=== PATIENT | female | born 1965 | race Caucasian/White ===

== ENCOUNTER 2016-09-25 05:48 | Day surgery (SDC) | payer MEDICARE, MEDICAID ==
--- NOTE | 2016-09-24 10:43 | PCM.ANEPRE ---
Anesthesia Pre-Op Review Reason for Review: Potassium 3.0 Anesthesia Recommendations: Proceed with Procedure Additional Comments I was called by the patient's PCM, who stated that she was otherwise ready for her operation but noted that she had a potassium level of 3.0 yesterday. I told him that he could start her on oral potassium supplementation if feasible, but that we would not postpone her operation for a potassium of 3.0. Brennan Wallace MD Sep 24, 2016 10:43
[~2016-09-25] VITALS: Ht 165.1 cm; Wt 72.3 kg
[2016-09-25] MEDS: Lactated Ringer's 1,000 ML IV SCH ×2 (05:19→07:36)
[~2016-09-25 05:48] MED LIST: ACYC400T2 PO; ALBU18HF INH; ALBU8.5H2 INHALATION; AZEL137S11 NS; BUTA1CAP45 PO; CITA20TA PO; CITA20TA11 PO; CLOB15CR2 TP; FLUT12AE8 IH; HYDR-656 PO; KEN1C TP; KETO10TA PO; LISI10TA PO; LORA10CA PO; LORA1TAB PO; OMEP20TA86 PO; OXYB5TAB10 PO; OXYC1TAB24 PO; RANI150C4 PO; RES15 PO; RIZA10TA23 PO
[2016-09-25 06:10] VITALS: BP 104/68; PULSE 100; RESP 16; O2SAT 100
[2016-09-25] MEDS ORDERED: Vancomycin 1,000mg/200 mL NS IV ONE (07:48)
[2016-09-25] MEDS ORDERED: Lactated Ringer's 1,000 ML IV SCH (07:48)
[2016-09-25] MEDS ORDERED: Lactated Ringer's 500 ML IV PRN (07:48)
--- NOTE | 2016-09-25 07:48 | PCM.HPANE ---
Patient Data Date of Service: Sep 25, 2016 Surgeon Admitting Provider: Attending Provider:Doroteo Tellez DPM Primary Care Physician:Leonid Carrasco MD Other Provider:Batsheva Storm Anesthesia Reason for Visit Painful Retained Hardware Right Foot Ht/WT & BMI Height (Feet): 5 Height (Inches): 5.00 Weight (Kilograms): 72.3 Body Mass Index 26.00 Allergies Coded Allergies: Cephalosporins (Verified Allergy, Severe, CEPHALEXIN= INCR HR, N/V, RASH , 03/19/15) Penicillins (Verified Allergy, Severe, AMPICILLIN=N/V, INCR HR, RASH, 03/19) ascorbic acid (Verified Allergy, Severe, INCR HR N/V, 03/19/15) clindamycin (Verified Adverse Reaction, Severe, N&V, 03/19/15) Sulfa (Sulfonamide Antibiotics) (Verified Adverse Reaction, Unknown, N/V, INCR HR, RASH, 03/19/15) Uncoded Allergies: NUTS (Allergy, Severe, RASH & BREATHING DIFFICULTIES, (ALL NUTS EXCEPT PEANUTS), 12/05/14) Past Anesthesia History Anesthesia History: Positive for:: Difficult Intubation (pt states she has "crooked jaw" from fall), Denies:: Abnormal Airway, Anesthesia Reactions, Fam Anesthesia Reaction, Fam Malignant Hypertherm, Malignant Hyperthermia Diabetes History Hx Diabetes?: No MRSA MRSA: No Medications Hypertension Medication: Yes Home Meds Incl Beta Carol: No Reported Medications Albuterol Sulfate (Ventolin HFA Inhaler)200 Puff/18 Gm Inhaler2 Puff INH Q4 PRN For Wheezing #1 INHALER Ref 0 09/22/16 Triamcinolone Acet (Triamcinolone Acetonide Cream)1 Applic/0.25 Gm Cr1 Applic EXT BID #60 GM Ref 0 09/22/16 Temazepam 15 Mg Svurneu10-07 Mg PO HS PRN For Insomnia 30 Days Ref 0 09/22/16 Ranitidine 150 Mg Wrfyiyz372 Mg PO BID Ref 0 09/22/16 oxyCODONE-Acetaminophen 5-325 mg 1 Each Tablet1 Tab PO Q6H PRN For Pain Ref 0 09/22/16 Oxybutynin Chloride 5 Mg Tablet5 Mg PO TID Ref 0 09/22/16 Omeprazole 20 Mg Tablet.dr20 Mg PO DAILY 09/22/16 Rizatriptan ODT (Maxalt [facility] [facility] [employer])10 Mg Yyeppv85 Mg PO Q2H PRN migraines NTE 30mg/24hr 09/22/16 Lorazepam 1 Mg Tablet1 Mg PO QID PRN For Anxiety Ref 0 09/22/16 Lisinopril 10 Mg Wgxrok77 Mg PO DAILY 30 Days Ref 0 09/22/16 Ketorolac Tromethamine 10 Mg Fgaemj25 Mg PO Q6H PRN For Pain 30 Days for up to 5 days total use 09/22/16 hydrOXYzine Hcl (HydrOXYzine Hcl)25 Mg Sbtjnj48 Mg PO TID PRN For Itching Ref 0 09/22/16 Fluticasone Propionate (Flovent HFA 110 mcg)12 Gm Aer.w.adap1 Puff IH BID #12 GM Ref 0 09/22/16 Clobetasol Propionate 15 Gm Cream..g.15 Gm TP BID PRN skin irritation 09/22/16 Loratadine (Claritin)10 Mg Qgivvuj07 Mg PO DAILY Ref 0 09/22/16 Citalopram 20 Mg Pjxgre10 Mg PO DAILY Ref 0 09/22/16 Citalopram Hydrobromide (Celexa)20 Mg Lndnep55 Mg PO DAILY Ref 0 09/22/16 Butalbital/Acetamin/Caff 50-325-40 mg (Esgic 50-325-40 mg)1 Each Capsule1-2 Capsule PO Q4H PRN migraines Ref 0 not to exceed 6cap/24hrs 09/22/16 Azelastine HCl 137 Mcg/0.137 Ml Granite.kooe485 Mcg NS DAILY 09/22/16 Albuterol HFA (Proair HFA)8.5 Gm Hfa.aer.ad2 Puffs INHALATION Q4H PRN For Shortness of Breath #1 INHALER 09/22/16 Acyclovir 400 Mg Kluqhd575 Mg PO BID Ref 0 09/22/16 Discontinued Reported Medications Lisinopril 20 Mg Wdmuhh17 Mg PO DAILY 30 Days Ref 0 03/19/15 Tolterodine Tartrate ER (Detrol LA)4 Mg Cap.sr.24h4 Mg PO 12/05/14 Omeprazole 20 Mg Capsule.dr20 Mg PO DAILY 30 Days Ref 0 12/05/14 Lorazepam 1 Mg Tablet1 Mg PO QID PRN For Anxiety Ref 0 12/05/14 Azelastine HCl 137 Mcg/0.137 Ml Granite.bjyr312 Mcg NS BID 12/05/14 Acyclovir 800 Mg Irn924 Mg PO DAILY 30 Days Ref 0 12/05/14 Temazepam 15 Mg Nyguotx56-20 Mg PO HS PRN For Insomnia 30 Days Ref 0 12/05/14 Sumatriptan (Imitrex)100 Mg Bcquua989 Mg PO PRN PRN For Headache 12/05/14 Rizatriptan (Maxalt)10 Mg Njkmws49 Mg PO PRN PRN For Congestion 12/05/14 Ketorolac Tromethamine 10 Mg Txzaub68 Mg PO QID PRN PRN 30 Days 12/05/14 Fluticasone Propionate (Flovent HFA 110 mcg)12 Gm Aer.w.adap1 Puff IH BID #12 GM Ref 0 12/05/14 Loratadine (Claritin)10 Mg Easgbix22 Mg PO DAILY 30 Days Ref 0 12/05/14 Citalopram Hydrobromide (Celexa)20 Mg Yvgnnp93 Mg PO DAILY 30 Days Ref 0 12/05/14 Albuterol HFA 8.5 Gm Hfa.aer.ad1 Puff IH Q4 PRN For Shortness of Breath #1 INHALER Ref 0 12/05/14 History History of ENT Problems?: Yes HEENT History: Positive for:: Difficult Intubation (pt states she has " crooked jaw" from fall) Sinus Problem (hx nasal septoplasty) Denies:: Abnormal Airway Cataracts Dysphagia Hearing Problem Hx of Heart Problems?: Yes Cardiovascular History: Positive for:: Heart Murmur Hypertension Valvular Heart Disease (mitral valve prolapse- severe, mitral regurg last echo 11/2015) Denies:: AICD Atrial Fibrillation Chest Pain Pacemaker Hx of Respiratory Problem?: Yes Respiratory History: Positive for:: Asthma Dyspnea (KENNEY W/ WHEEZING) Use of C-PAP Machine (MARIA ANTONIA+ SLEEP STUDY 02/2014) Use of Inhalers / NEBS (uses around smoking only) Denies:: COPD Cough Hemoptysis Pneumonia Tuberculosis Hx Neurologic Problems?: Yes Neurological History: Positive for:: Dizziness (remote hx of 2007) Headaches (two to three times ) Denies:: CVA Dementia Multiple Sclerosis Parkinson's Disease Seizures Other History/Comments developmental delay/cognitive impairment Hx of GI Problems?: Yes Gastrointestinal History: Positive for:: Gastroesphageal Reflux Heartburn Rectal Bleeding (hemorrhoids, and constipation) Denies:: Cirrhosis Diverticulitis Gall Bladder Disease Gastrointestinal Bleeding Hiatal Hernia Liver Disease Hx of Problems?: Yes Genitourinary History: Denies:: Kidney Stones Urinary Tract Infection (past hx ) Female Hx: Denies:: Currently Pelvic Inflammatory Problems with Breasts? Skin History: Denies:: History Skin Disorders? Pressure Ulcers Hx Musculoskeletal Problems?: Yes Musculoskeletal History: Positive for:: Degenerative Joint Musculoskeletal Trauma (right foot current admission problem) Osteoarthritis (left leg) Denies:: Fibromyalgia Joint Replacement Hx of Psycho/Social Problems?: Yes Psycho Social History: Positive for:: Anxiety Hx Depression Hx Surgeries?: Yes (BTL,SINUSOTOMIES,NASAL SEPTOPLASTY,ORAL EXTRACTIONS,TONSILS ) Hx Any Other Health Problems?: Yes Other History: Positive for:: Hospitalization Denies:: Cancer Endocrine Disease (HX PITUITARY ADENOMA) Thyroid Disease History Blood Transfusions: Positive for:: Blood Transfusions (JEHOVAH WITNESS (WAS GIVEN BLOOD BEFORE-CONSENT BY ;NOT PT)) Denies:: Accept Blood Products? Blood Transfuse Reaction (pt will accept expanders and normal saline ) Hx Diabetes: No Hx Alcohol Use: NoHx Substance Use: No Smoking Status: Former Smoker Have You Smoked inLast 12 mo: No Stop/Bang Treated for Sleep Apnea?: Yes S-Snoring: Do You Snore Loudly: Yes T-Tired: feel tired, fatigued: Yes O-Obsered: Observed not breath: Yes P-Blood Pressure: treated: Yes B- Body Mass Index > 35 kg/m2: No A- Age over 50: Yes N- Neck Large Circumference: No G- Gender Male: No MARIA ANTONIA Total Score: 5 MARIA ANTONIA Risk Assessment: High Risk, =/>3 Yes Risk Assessment Category Category 1A: Patient has history of documented sleep apnea, and HAS NOT received any narcotic, sedative or anesthesia administration during this stay. Category 1B: Patient has history of documented sleep apnea, and HAS received any narcotic , sedative or anesthesia administration during this stay Category 2: Patient has SUSPECTED Obstructive Sleep Apnea, and HAS received any narcotic , sedative or anesthesia administration during this stay. Category 3: Patient has SUSPECTED Obstructive Sleep Apnea and HAS NOT received narcotic, sedative or anesthesia administration during this stay. Category 4: Outpatient in Procedural Areas with known sleep apnea or who screen positive for High Risk via the STOP/BANG questionnaire. Exam Exam Vital Signs Vital Signs Date Time Temp Pulse Resp B/P Pulse Ox O2 Delivery O2 Flow Rate FiO2 09/25/16 06:10 36.4 100 16 104/68 100 Room Air General Appearance: Alert, Oriented X3, Cooperative, No Acute Distress HEENT/AIRWAY: MP 3 (narrow interincisor gap/TMJ Reduced ROM) Lungs: Clear to Auscultation, Normal Air Movement Heart: Normal S1, Normal S2, Murmur Meds/Labs/Diagnostics Admission Meds Current Medications Lactated Ringer's (Lr) 1,000 ml @ 120 mls/hr Q8H20M IV Last administered on t 05:19; Start 09/25/16 at 05:00; Stop 09/25/16 at 13:19 Plan Impression Patient chart reviewed, patient interviewed and anesthestic plan with risks, benefits, and alternatives discussed, and informed consent obtained. NPO Status: 10/04 AT 1999 ASA Physical Status: ASA2 Mod Systemic Disease (sever MR without functional decline. Low risk procedure, intermediate risk patient) Anesthetic Plan: MAC Bene/Risks/Altern/Consents: Yes HP Complete Prior to Induction: Yes Jamil Samuel DO Sep 25, 2016 07:48
[2016-09-25] MEDS ORDERED: Labetalol 5 mg/mL 4 mL Inj IV PRN (07:50)
[2016-09-25] MEDS ORDERED: Phenylephrine 10,000 mCg/mL Inj IVPUSH PRN (07:50)
[2016-09-25] MEDS ORDERED: HYDROmorphone 1 mg/mL Inj IVPUSH PRN (07:50)
[2016-09-25] MEDS ORDERED: EPHEDrine Sulfate 50 mg/mL Inj IVPUSH PRN (07:50)
[2016-09-25] MEDS ORDERED: Dexamethasone 4 mg/mL Inj IVPUSH PRN (07:50)
[2016-09-25] MEDS ORDERED: Ondansetron 2 mg/mL 2 mL Inj IVPUSH PRN (07:50)
[2016-09-25] MEDS ORDERED: MetoCLOpramide 5 mg/mL 2 mL Inj IVPUSH PRN (07:50)
[2016-09-25] MEDS ORDERED: Atropine 0.4 mg/mL Inj IVPUSH PRN (07:50)
[2016-09-25] MEDS ORDERED: fentaNYL-PF 50 mCg/mL 2 mL Inj IVPUSH PRN (07:50)
[2016-09-25] MEDS ORDERED: Vancomycin 1,000 mg/250 mL NS IV ONE ×2 (08:15)
[2016-09-25] MEDS ORDERED: Bupivacaine 0.5%/EPI 50 mL Inj NERVEBLOCK ONE (08:15)
[2016-09-25] MEDS ORDERED: Lidocaine 2%-Epi 1:100,000 20 mL Inj NERVEBLOCK ONE (08:15)
[2016-09-25] MEDS ORDERED: Dexamethasone 4 mg/mL Inj INTRARTICU ONE (08:45)
[2016-09-25 09:59] VITALS: BP 103/61; PULSE 102; RESP 16; O2SAT 95
[2016-09-25] MEDS ORDERED: hydrOXYzine Pamoate 25 mg Capsule ONE (10:27)
[2016-09-25] MEDS ORDERED: oxyCODONE-Acetamin 10-325 mg Tablet PO ONE (10:27)
[2016-09-25] MEDS ORDERED: hydrOXYzine Pamoate 25 mg Capsule PO ONE (10:45)
[2016-09-25] MEDS ORDERED: oxyCODONE-Acetamin 10-325 mg Tablet PO PRN (10:45)
--- NOTE | 2016-09-25 10:45 | PCM.ANEP1 ---
Post Anesthesia Phase 1 PACU Phase 1 Assessment Date of Service: Sep 25, 2016 Vital Signs Vital Signs Date Time Temp Pulse Resp B/P Pulse Ox O2 Delivery O2 Flow Rate FiO2 09/25/16 09:59 36.6 102 16 103/61 95 Room Air 09/25/16 06:10 36.4 100 16 104/68 100 Room Air Anesthetic Administered: MAC Level of Alertness: Awake, talking TAMAYO's with Equal Strength: Yes Pain: No Nausea or Vomiting: No Oxygen Delivery: Room Air Lungs: Clear to Auscultation, Normal Air Movement Dermatome Level: Full Sensation Summary Pt emotional, weeping, moderate distress with unintelligable description of source of distress. Discussed with surgeon who has historic familiarity with her emergence and describes this affect as a baseline presentation for her state of sedation. Jamil Samuel DO Sep 25, 2016 10:45
[2016-09-25 11:37] VITALS: BP 95/61; PULSE 87; RESP 16; O2SAT 97
--- NOTE | 2016-09-25 12:11 | PCM.ANEP2 ---
Post Anesthesia Evaluation ASA/CMS Post Anesthesia Date of Service: Sep 25, 2016 VS in Patient's Normal Range?: Yes Resp Stable; Airway Patent?: Yes CV Function & Hydration Stable: Yes Mental Status Recovered?: Yes Pain control Satisfactory?: Yes N/V Control Satisfactory?: Yes Jamil Samuel DO Sep 25, 2016 12:11
--- NOTE | 2016-09-29 04:23 | OP ---
[address] [address] OPERATIVE REPORT PATIENT: EMMIE MARAVILLA : 1965 MR#: [id number] ADMIT: 09/25/2016 JOB ID: [id number] DATE OF SURGERY: 09/25/2016 SURGEON: Doroteo Tellez DPM PREOPERATIVE DIAGNOSIS(ES): Painful retained hardware of the right foot. POSTOPERATIVE DIAGNOSIS(ES): Painful hardware of the right foot. PLANNED PROCEDURE: 1. Removal of orthopedic hardware from the right foot. 2. Intra-articular steroid injection of the calcaneocuboid joint and sinus tarsi. ANESTHESIA: Local with IV sedation. HEMOSTASIS: None. ESTIMATED BLOOD LOSS: Less than 5 cc. COMPLICATIONS: None. PROCEDURE AND FINDINGS: The patient was brought to the operating room and placed on the table in supine position. She was placed under IV sedation. Afterwards, I performed a right ankle blockade using 2% lidocaine with epinephrine. The right lower extremity was prepped and draped in normal sterile surgical manner. Attention was directed to the lateral aspect of the ankle where live fluoroscopy was utilized to direct access to the lateral plate and the underlying screws. Live fluoroscopy did confirm that the screws were quite long, penetrating into the tibial nerve space on the medial side. The incision was placed within skin lines and the hypertrophic incision was excised in toto. Incision was taken down to the plate using sharp and blunt dissection, carefully cauterizing and/or ligating any bleeders that were encountered. I then secured and removed all four screws, found them to be intact without damage. The plate was also removed. Underlying bone was of good durometer including area previously grafted. The wound was flushed with normal saline. Afterwards, I closed the deep tissue plane with 3-0 Vicryl, followed by subcu closure of 4-0 Vicryl with buried knots. Attention was then directed to the dorsal aspect of the foot where incision was placed under live fluoroscopy guidance to access screws of the first metatarsal and 2nd. Incision was taken down to the hardware using sharp and blunt dissection, carefully cauterizing and ligating any bleeders that were encountered. Then, I cleared each of these screws from soft tissue and removed each, finding them to be intact, stable and without sign of corrosive change. I also performed a small incision over readily palpable and prominent head of the screw in the 5th metatarsal. Incision was taken down to the hardware which was then removed and found to be unremarkable. Likewise, I was able to palpate and incise down to the screw within the 4th metatarsal which was removed, and the final screw from the 3rd metatarsal. All screws were found to be intact, stable, and without signs of corrosive changes. Many of them were, however, very loose, spun free and were somewhat difficult to extract. All incisions were closed with deep retention of 3-0 Vicryl, followed by Steri-Strips over tincture of benzoin. Lateral incision was also treated with Steri-Strips over tincture of benzoin. I performed a durable posterior block using 0.5% bupivacaine with epinephrine. I then used 1 cc of dexamethasone sodium phosphate into the calcaneocuboid joint with the 2nd being introduced into the sinus tarsi. The patient had immediate CFT throughout the procedure as no tourniquet was applied. She was transferred from the operating room in stable condition, having tolerated the procedure and anesthetic well. Complete anesthetic block was confirmed once the patient was able to communicate with us. POSTOPERATIVE PLAN: The patient may bear weight upon the limb in her tall orthopedic boot. She is encouraged to ambulate only as necessary. She is provided with analgesic opiate prescription as well as Vistaril and azithromycin as prophylactic antibiotic. She will take that for a total of five days. I will follow her in my regular office in six days. The patient is given after hours numbers and we will call her over the weekend for update.
== END 2016-09-25 23:59 | disposition home or self-care (01) ==
LOC: SAS 05:48
PROVIDERS: ATTEND Podiatrist
DX: T84.84XA Pain due to internal orthopedic prosthetic devices, implants and grafts, initial encounter (principal); G47.30 Sleep apnea, unspecified; I34.0 Nonrheumatic mitral (valve) insufficiency; G25.81 Restless legs syndrome; I34.1 Nonrheumatic mitral (valve) prolapse
CPT/HCPCS: 20680; 76000; J1100; J2250; J3370; J7050; J7120; Q0177

== ENCOUNTER 2016-12-17 17:36 | Inpatient (IN) | payer MEDICAID, MEDICARE ==
[~2016-12-17] VITALS: Ht 165.1 cm; Wt 66.5 kg
[2016-12-17] VITALS (9 sets, daily range): BP systolic 108–136; BP diastolic 66–92; PULSE 104–112; RESP 20–28; O2SAT 96–100
--- NOTE | 2016-12-17 17:41 | ED.REPORT ---
HPI-Stroke / CVA December 17, 2016 ED Provider: Leonid Hammonds MD 51 year old female with a history of Developmental delay who presents to the ER via EMS due to slurred speech, R sided gaze, L sided paralysis and incontinence. It is unclear when these symptoms started after speaking with the family who are somewhat difficult to obtain a history from. She was last seen normal this morning at 0500. Just prior to arrival the pt's family was trying to carry the patient to the bathroom when she fell to the ground and was unable to pick her up. At baseline the patient can walk independently. Family states that the patient's paralysis is new today. Pt not anticoagulated. Nursing Notes Stated Complaint: POSSIBLE STROKE Nursing Notes Reviewed: Yes Allergies: Coded Allergies: Cephalosporins (Verified Allergy, Severe, CEPHALEXIN= INCR HR, N/V, RASH , 03/19/15) Penicillins (Verified Allergy, Severe, AMPICILLIN=N/V, INCR HR, RASH, 03/19) ascorbic acid (Verified Allergy, Severe, INCR HR N/V, 03/19/15) clindamycin (Verified Adverse Reaction, Severe, N&V, 03/19/15) Sulfa (Sulfonamide Antibiotics) (Verified Adverse Reaction, Unknown, N/V, INCR HR, RASH, 03/19/15) Uncoded Allergies: NUTS (Allergy, Severe, RASH & BREATHING DIFFICULTIES, (ALL NUTS EXCEPT PEANUTS), 12/05/14) Scheduled Citalopram Hydrobromide (Celexa) 20 Mg Tablet 20 MG PO QAM (Reported) Cyclosporine (Restasis) 1 Each Droperette 1 EACH BOTH_EYES BID (Reported) Loratadine (Claritin) 10 Mg Capsule 10 MG PO QAM (Reported) Losartan Potassium (Losartan Potassium) 25 Mg Tablet 25 MG PO QAM (Reported) Pantoprazole DR (Pantoprazole DR) 40 Mg Tablet.dr 40 MG PO QAM (Reported) Prednisone (PredniSONE) 20 Mg Tablet 20 MG PO DIRECTED (Reported) 60 MG DAILY X 3 DAYS, 40 MG DAILY X 5 DAYS, 20 MG DAILY X 5 DAYS Tolterodine Tartrate ER (Tolterodine Tartrate ER) 4 Mg Capsule 4 MG PO QAM ( Reported) Scheduled PRN Acyclovir (Acyclovir) 400 Mg Tablet 800 MG PO BID PRN PRN HERPES BREAKOUT X 5DAYS (Reported) Albuterol HFA (Proair HFA) 8.5 Gm Hfa.aer.ad 2 PUFFS INHALATION Q4H PRN PRN For Shortness of Breath (Reported) Butalbital/Acetamin/Caff 50-325-40 mg (Esgic 50-325-40 mg) 1 Each Capsule 1-2 CAPSULE PO Q4H PRN PRN migraines (Reported) not to exceed 6cap/24hrs Clobetasol Propionate (Clobetasol Propionate) 15 Gm Cream..g. 1 APPLIC TP BID PRN PRN skin irritation (Reported) Clonazepam (Clonazepam) 0.5 Mg Tablet 0.5 MG PO DAILY PRN PRN For Anxiety ( Reported) Hydrocodone-Acetaminophen 10-325 mg (Hydrocodone-Acetaminophen 10-325 mg) 1 Each Tablet 1-2 TABLET PO Q4H PRN PRN For Pain (Reported) Ibuprofen (Ibuprofen) 600 Mg Tablet 600 MG PO QID PRN PRN For Pain (Reported) Polyethylene Glycol 3350 (Polyethylene Glycol 3350) 17 Gm Powd.pack 17 GM PO DAILY PRN PRN For Constipation (Reported) Rizatriptan ODT (Maxalt PLUMBING ASSEMBLER INSTALLER) 10 Mg Tablet 10 MG PO Q2H PRN PRN migraines ( Reported) TAKE 10 MG AT ONSET OF MIGRAINE, MAY REPEAT IN 2 HRS IF NEEDED. NTE 2 DOSES/ 24 HRS. Temazepam (Temazepam) 15 Mg Capsule 15-30 MG PO HS PRN PRN For Insomnia ( Reported) Triamcinolone Acet (Triamcinolone Acetonide Cream) 1 Applic/0.25 Gm Cr 1 TP BID PRN PRN RASH (Reported) hydrOXYzine Hcl (HydrOXYzine Hcl) 25 Mg Tablet 25 MG PO TID PRN PRN For Itching (Reported) General Time Seen by Provider: 17:35 Chief Complaint Weakness, Slurred speech Left-sided Hx Obtained From: Patient, Other family..., EMS Arrived By: Ambulance Time last known well 0500 this AM Sudden in Onset?: Yes Symptom Duration: Since onset Progression Since Onset: Constant Severity: Current: No pain currently Associated with: Reports: Incontinence, Speech problem, Denies: Vomiting Pertinent Negative: Relieved by nothing Risk Factors )( TPA Administration/Criteria Stroke Thrombolytic Therapy : TPA Considered: Yes TPA Administered Intravenously: No, exclusion criteria (Unknown time of onset) NIH Stroke Scale Level of Consciousness: Alert and responsive (0) Ask Month & Age: 1 question right (1) Open/Close Eyes/Hand Mobile Designer: Performs both tasks (0) Horizontal EO Movements: None (0) Visual Perez: No visual loss (0) Facial Palsy: Minor paralysis (1) (L sided) Right Arm Motor Drift (10s): No drift 10 sec (0) Left Arm Motor Drift (10s): No effort, limb fails (3) Right Leg Motor Drift (5s): Drift, hits bed (2) Left Leg Motor Drift (5s): No effort, limb fails (3) Limb Ataxia FNF/Heel-Manuel: Untestable (0) Sensation (Arms/Legs/Face): No sensory loss (0) Language Aphasia: Loss fluency ID matls (1) Dysarthria: Slurring intelligible (1) Extinction/Inattention: No exctinct/inattent (0) NIHSS Score: 12 Time NIHSS Performed: 17:40 Date NIHSS Performed: December 17, 2016 Past Medical History Past Medical History HTN Valvular heart disease(mitral valve prolapse- severe, mitral regurg last echo 11/2015) Asthma MARIA ANTONIA on CPAP GERD Anxiety Depression HX PITUITARY ADENOMA Past Surgical History BTL,SINUSOTOMIES,NASAL SEPTOPLASTY,ORAL EXTRACTIONS,TONSILS, FOOT Smoking History Former Smoker Review of Systems Neurologic: Reports: Bladder dysfunction, Focal weakness, Problem walking, Slurred speech, Denies: Change LOC, Unable to speak, Vision change Complete sys rev & neg: except as marked. Physical Exam Initial Vital Signs Vital Signs (First) Date Time Temp Pulse Resp B/P Pulse Ox O2 Delivery O2 Flow Rate FiO2 12/17/16 17:56 104 26 128/73 100 Room Air Initial VS: Reviewed ENT: Conjunctiva normal, No scleral icterus Abdomen / GI: Soft, Non-tender Skin: Warm, Dry Psychiatric: Mood/affect normal, Normal thought content General/Constitutional: Awake, Alert Head / Eyes: Atraumatic, Normocephalic, PERRL Neck: Atraumatic, Full range of motion Respiratory / Chest: Breath sounds NL, Breath sounds = bilat, No respiratory distress, No rales, No rhonchi, No wheezing Cardiovascular: Heart rate NL Holosystolic murmur at Left Upper sternal border Neurologic: Oriented X3 See NIH scale Interpretation & Diagnostics Lab Results Interpretation Result Diagram: 12/17/16 1800 12/17/16 1800 Test 12/17/16 18:00 White Blood Count 13.6th/mm3 (3.8-10.1) Red Blood Count 4.41mil/mm3 (3.90-5.20) Hemoglobin 11.7g/dL (12.0-15.6) Hematocrit 36.2% (35.0-46.0) Mean Corpuscular Volume 82.1fL (81-100) Mean Corpuscular Hemoglobin 26.5pg (27.0-35.0) Mean Corpuscular Hemoglobin Concent 32.3% (32.0-37.0) Red Cell Distribution Width 17.7% (12.3-15.4) Platelet Count 298bil/L (150-400) Neutrophils (%) (Auto) 85.9% (40-74) Lymphocytes (%) (Auto) 7.9% (14-46) Monocytes (%) (Auto) 5.7% (4-12) Eosinophils (%) (Auto) 0% (0-5) Basophils (%) (Auto) 0.1% (0-3) Prothrombin Time 10.5sec (8.1-12.5) Prothromb Time International Ratio 0.98ratio Activated Partial Thromboplast Time 24.9sec (22.8-33.0) Sodium Level 137mEq/L (134-144) Potassium Level 3.3mEq/L (3.5-5.2) Chloride Level 94mEq/L (97-108) Carbon Dioxide Level 24mmol/L (18-29) Blood Urea Nitrogen 15mg/dL (6-24) Creatinine 0.50mg/dL (0.57-1.00) Estimat Glomerular Filtration Rate 186mL/min (>59) Glucose Level 104mg/dL (60-99) Calcium Level 9.3mg/dL (8.5-10.1) Total Bilirubin 1.6mg/dL (0.0-1.2) Aspartate Amino Transf (AST/SGOT) 21U/L (0-50) Alanine Aminotransferase (ALT/SGPT) 5U/L (0-32) Alkaline Phosphatase 119U/L (25-150) Troponin T < 0.010ug/L (0.0-0.011) Total Protein 7.5g/dL (6.4-8.4) Albumin 3.1g/dL (3.4-5.0) General Lab Results Interp 1: Labs reviewed ECG Interpretation Time: 18:25 Interpreted by: ED physician Rhythm / Conduction: Tachycardia (106) CT Head Interpretation IMPRESSION: Acute nonhemorrhagic stroke involves the right basal ganglia, with concomitant findings suspicious for proximal right middle cerebral artery thrombus. Findings discussed with Dr. Kiran Caruso on 1755 hours on December 17, 2016. This study fulfills neurological imaging criteria for inclusion or exclusion of acute stroke therapies based on available published neurological imaging guidelines. Dictated by: Stanley Dixon M.D. on 12/17/2016 at 17:50 Study: Head CT no contrast Interpretation / Wet Read by: Interpret - Radiologist Re-Eval/Medical Decision Med Decision/Clinical Course 51-year-old female with developmental delay presenting with left-sided weakness, left-sided facial droop developed today. Last known normal was greater than 8 hours prior to arrival. Code stroke called immediately. CT shows right MCA infarct with clot. Discussed with [facility] stroke neurologist who said not TPA candidate and not candidate for thrombectomy due to time. Recommended admission for stroke workup. Admitted to hospitalist. Aspirin given. Re-Evaluation/Progress : Time of Eval: 18:08 Re-Evaluation/Progress Note: Pt and family updated of + CVA and discussed plan for possible transfer to [facility] Consultation #1: Referral / Consult Name: DevincheliEmilia Roas LOPEZ Consulted With: Hospitalist Call Returned at: 19:16 Nursing Teacher: Will see patient, Agrees with eval, Agrees with plan, Accepts admit Consultation #2: Call Returned at: 17:58 Note: Informed of imaging result by radiolofist. Consultation #3: Consulted With: Neurology Call Returned at: 18:01 Note: [facility] Neurology- Dr. Mynor Matthew- Not TPA or thrombectomy candidate. Normal stroke workup. Okay to stay here and not transfer. Counseled Regarding: Diagnosis, Lab results, Need for admission Patient Discharge & Departure Impression: Primary Impression: Acute right MCA stroke Disposition: ADMITTED TO HOSPITAL Transfer Requested at: 18:11 Receiving Hospital: [facility] Neurology- Dr. Mynor Matthew Transfer Accepted: No Discharge Condition All VS Reviewed: Yes Referrals: Leonid Carrasco MD (PCP) Crit Care Except Billable Proc Time Spent: 75-104 minutes Services Performed: Patient management by me, Time spent at bedside, Reviewing test results, Reviewing imaging, Discussing patient care, Documentation in record, Time with fam/surrogate Scribe Attestation Portions of this note were transcribed by Jyothi Luna. I, (Dr. Leonid Caruso) personally performed the history, physical exam and medical decision- making; I reviewed and confirmed the accuracy of the information in the transcribed note. Signed by: Jyothi Luna. Scott, 12/17/2016, 1999 copies to: Leonid Carrasco MD, Ben M MD December 17, 2016 17:41 Jyothi Luna December 17, 2016 17:55
--- NOTE | 2016-12-17 17:57 | DRSVH ---
PROCEDURE: CT BRAIN (TPA) ([id number]) INDICATIONS: 51 year-old female with stroke symptoms. TECHNIQUE: Noncontrast 4.5 mm thick angled axial sections acquired from the foramen magnum to the vertex, with c oronal reformats. COMPARISON: None. FINDINGS: Image quality: Excellent. CSF spaces: Basal cisterns are patent. No extra-axial fluid collections. Ventricles are normal in size and shape. Brain: No midline shift. No intracranial masses or hemorrhage. An acute ischemic insult involves th e right basal ganglia, with loss of ash-white matter differentiation as well as localized mass effec t. On axial image 13, there is asymmetric hyperdensity of the proximal right middle cerebral artery. Skull and face: Calvarium and visualized facial bones are intact, without suspicious lesions. Sinuses: Visualized sinuses and mastoids are clear. IMPRESSION: Acute nonhemorrhagic stroke involves the right basal ganglia, with concomitant findings s uspicious for proximal right middle cerebral artery thrombus. Findings discussed with Dr. Kiran Caruso on 1755 hours on December 17, 2016. This study fulfills neurological imaging criteria for inclusion or exclusion of acute stroke therapie s based on available published neurological imaging guidelines. Dictated by: Stanley Dixon M.D. on 12/17/2016 at 17:50 Approved by: Stanley Dixon M.D. on 12/17/2016 at 17:55
[2016-12-17 18:18] LABS: BASOPHILS % (AUTO) 0.1 % (0-3); EOSINOPHILS % (AUTO) 0 % (0-5); MONOCYTES % (AUTO) 5.7 % (4-12); Mean Corpuscular Hemoglobin 26.5 pg (27.0-35.0); Mean Corpuscular Volume 82.1 fL (81-100); NEUTROPHILS % (AUTO) 85.9 % (40-74); Platelet Count 298 bil/L (150-400)
[2016-12-17 18:36] LABS: INR 0.98 ratio
[2016-12-17 18:42] LABS: TROPONIN T < 0.010 ug/L (0.0-0.011)
[2016-12-17] MEDS ORDERED: Ondansetron 2 mg/mL 2 mL Inj IVPUSH PRN ×2 (19:20→19:40)
[2016-12-17] MEDS ORDERED: Alum-Mag Hydrox-Simeth 30 mL Suspension PO PRN ×2 (19:20→19:40)
[2016-12-17] MEDS ORDERED: PRE20 PO (19:34)
[2016-12-17] MEDS ORDERED: CYCL1DRO BOTH_EYES (19:40)
[2016-12-17] MEDS ORDERED: LOSA25TA21 PO (19:40)
[2016-12-17] MEDS ORDERED: PANT40TA3 PO (19:40)
[2016-12-17] MEDS ORDERED: Polyethylene Glycol (PEG) 17 Gm Powder PO PRN (19:40)
[2016-12-17] MEDS ORDERED: TOLT4CAP13 PO (19:40)
[2016-12-17] MEDS ORDERED: POLY17PO2 PO (19:40)
[2016-12-17] MEDS ORDERED: IBUP-1827 PO (19:40)
[2016-12-17] MEDS ORDERED: HYDROcodone-APAP 5-325 mg Tablet PO PRN (19:40)
[2016-12-17] MEDS ORDERED: HYDR-3740 PO (19:40)
[2016-12-17] MEDS ORDERED: Labetalol 5 mg/mL 4 mL Inj IVPUSH PRN (19:40)
[2016-12-17] MEDS ORDERED: KLO5T PO (19:40)
[2016-12-17] MEDS ORDERED: hydrALAZINE 20 mg/mL Inj IVPUSH PRN (19:40)
[2016-12-17] MEDS ORDERED: 0.9% Sodium Chloride 500 ML IV ONE (19:50)
[2016-12-17 20:08] LABS: APPEARANCE,URINE CLOUDY (CLEAR,HAZY); COLOR,URINE DARK YELLOW (YELLOW); OCCULT BLOOD,URINE LARGE (NEGATIVE); UROBILINOGEN,URINE NORMAL (NORMAL)
[2016-12-17 20:09] LABS: ICTOTEST,URINE POSITIVE (Negative)
--- NOTE | 2016-12-17 20:35 | PCM.HPMED ---
Subjective Date of Service December 17, 2016 Primary Provider: Admitting Physician: Emilia Hammer DO Primary Care Physician: Leonid Carrasco MD Attending Physician: Emilia Hammer DO Admit Status: From the Emergency Department Chief Complaint: left sided weakness History of Present Illness: 51-year-old female with history of learning disability, MVR, migraines, and sleep apnea who presented to the ED for complaints of acute onset of left-sided weakness and slurred speech. Per family, patient was noted to have these symptoms around lunchtime today, although they are unsure if it was present before. They state the patient was at baseline prior to going to sleep last night. She is able to converse fluently and walk independently at baseline, but around lunchtime, they noted that she was unable to articulate her words well and had to be carried to the bathroom. She was noted to be have urinary incontinence also. Family denies any recent illnesses, fevers, cough, congestion , abd pain, n/v, diarrhea, or increased complaint of pain. Patient did have surgery in Sep on her right foot and family reports patient has been fairly immobile since. She generally lays in bed everyday except for a rare trip to [facility]. In the ED, patient was mildly tachycardic at 104, with a respiratory rate of 26 , and a blood pressure of 128/73 Her CBC remarkable for a white count of 13.6 with hemoglobin 11.7 CMP remarkable for a potassium of 3.3 and a total bilirubin of 1.6 Her NIH SS score was 12 per ED physician. Initial brain CT unremarkable for acute nonhemorrhagic stroke of the right basal ganglia with a proximal right MCA thrombus. TPA was not pushed due to uncertain timeframe. [facility] neurosurgery was consulted and recommended observation overnight with MRI in the morning and reconsultation. Reviewing patient's medications, she is currently on the prednisone taper. Further investigation by pharmacy team reports that patient was the [facility] on December 13 for left-sided temporal pain. They were suspicious of temporal arteritis and she was placed on a prednisone taper, which she is at 40 mg currently. Review of Systems: Complete review of systems negative except as stated in the history of present illness Allergies Coded Allergies: Cephalosporins (Verified Allergy, Severe, CEPHALEXIN= INCR HR, N/V, RASH , 03/19/15) Penicillins (Verified Allergy, Severe, AMPICILLIN=N/V, INCR HR, RASH, 03/19) ascorbic acid (Verified Allergy, Severe, INCR HR N/V, 03/19/15) clindamycin (Verified Adverse Reaction, Severe, N&V, 03/19/15) Sulfa (Sulfonamide Antibiotics) (Verified Adverse Reaction, Unknown, N/V, INCR HR, RASH, 03/19/15) Uncoded Allergies: NUTS (Allergy, Severe, RASH & BREATHING DIFFICULTIES, (ALL NUTS EXCEPT PEANUTS), 12/05/14) Home Medications From [facility] acyclovir 400 mg tablet take 2 tablet by oral route every day albuterol sulfate HFA 90 mcg/actuation Aerosol Inhaler inhale 2 puff by inhalation route every 4 - 6 hours as needed azelastine 137 mcg nasal spray aerosol spray 2 spray by intranasal route 2 times every day in each nostril lkvdzipkva-cipjxirgbbrst-cslgfvgb 50 mg-325 mg-40 mg capsule take 1 - 2 capsule by oral route every 4 hours as needed not to exceed 6 capsules per 24hrs Celexa take 1 tablet by oral route every day citalopram 20 mg tablet take 1 tablet by oral route every day Claritin 10 mg Tab take 1 tablet (10MG) by oral route every day clobetasol 0.05 % topical cream apply by topical route 2 times every day a thin layer to the affected area(s) Flovent HFA 110 mcg/actuation Aerosol Inhaler inhale 1 puff (110MCG) by inhalation route 2 times every day hydroxyzine HCl 25 mg tablet take 1 tablet by oral route 4 times every day ketorolac 10 mg tablet take 1 tablet by oral route every 6 hours as needed for up to 5 days total use lisinopril 10 mg tablet take 1 tablet by oral route every day lorazepam 1 mg tablet take 1 tablet by oral route 4 times every day as needed losartan 25 mg tablet take 1 tablet by oral route every day Maxalt-WHEEL ALIGNMENT TECHNICIAN 10 mg disintegrating tablet take 1 tablet by oral route and place on top of the tongue where it will dissolve, then swallow once, may repeat at 2 hour intervals; do not exceed 30 mg in 24 hours naproxen 500 mg tablet take 1 tablet by oral route every day with food omeprazole 20 mg capsule,delayed release take 1 capsule by oral route every day 30 minutes to 1 hour before a meal oxybutynin chloride 5 mg tablet take 1 tablet by oral route 3 times every day Percocet 5 mg-325 mg tablet take 1 tablet by oral route every 6 hours as needed Percocet 5 mg-325 mg tablet take 1 tablet by oral route every 6 hours as needed ranitidine 150 mg capsule take 1 capsule by oral route 2 times every day temazepam 15 mg capsule take 1 - 2 capsule by ORAL route every day at bedtime as needed triamcinolone acetonide 0.1 % topical ointment apply by topical route 2 times every day a thin layer to the affected area(s) Ventolin HFA 90 mcg/actuation aerosol inhaler inhale 2 puff by inhalation route every 4 - 6 hours as needed PMH Learning Disability Mitral Valve Regurg secondary to MVP ADD Sleep Apnea not on CPAP GERD Asthma RLS Migraines Reported history of pituitary adenoma Depression Surgical History Right foot surgery in 2014 with hardware removal 09/2016 Tonsillectomy Sinus surgery Family History Anabaptist No family history of blood disorders Social History Hx Alcohol Use: No Hx Substance Use: No Hx Tobacco Use: No Smoking Status: Former Smoker Living Arrangement: with Family Exam Vital Signs Vital Sign - Last Date Time Temp Pulse Resp B/P Pulse Ox O2 Delivery O2 Flow Rate FiO2 12/17/16 19:40 36.7 107 24 128/92 99 Room Air Exam General: Well-developed female who appears in poor hygiene, she is unable to articulate well, but does answer yes or no and is cooperative, she is alert and oriented HEENT: NC/AT, PERRLA, EOMI, sclera anicteric, oropharynx dry with crusted blood on lips, poor dentition Neck: Paraspinal muscles mildly tender to palpation, trachea midline, no bruits noted CV: Regular rate and rhythm harsh systolic murmur at left midclavicular line. Peripheral pulses intact and equal Respiratory: CTA B, no wheezing or rhonchi, normal respiratory effort Abdomen: Soft, nontender, nondistended, NABS MSK: No swollen or tender joints, no peripheral edema or calf tenderness noted Neuro: Left facial droop noted, left upper extremity and left lower extremity muscle strength is 0/5. Fairly severe dysarthria and some left gigi-neglect : No Meraz in place Skin: Warm, dry, intact Psych: Patient is alert, oriented, and is responsive to questioning. She was able to state her name and birthdate, but answered majority of questions with yes or no. Lab and Diagnostics Result Diagram: 12/17/16 1800 12/17/16 1800 X-Rays, CTs and MRIs PROCEDURE: CT BRAIN (TPA) ([id number]) IMPRESSION: Acute nonhemorrhagic stroke involves the right basal ganglia, with concomitant findings suspicious for proximal right middle cerebral artery thrombus. Findings discussed with Dr. Kiran Caruso on 1755 hours on December 17, 2016. This study fulfills neurological imaging criteria for inclusion or exclusion of acute stroke therapies based on available published neurological imaging guidelines. 12-lead ECG Sinus tachycardia with heart rate of 106, multiple PVCs, unspecific IVCD Assessment & Plan 51-year-old female with history of learning disability, MVR, migraines, and sleep apnea who presented to the ED for complaints of acute onset of left-sided weakness and slurred speech. Right basal ganglia nonhemorrhagic stroke with right MCA thrombus, POA -Suspect that this is possibly due to patient's immobile state after a right ankle surgery, but hypercoagulable disorder vs cardiac source is also possible in this patient. -[facility] neurology has been consulted, and recommends MRI in the a.m., and then contacting them again in the AM -Frequent neuro checks -Allow for permissive hypertension. IV labetalol and IV hydralazine prn BP >220 /110 -Placed on telemetry for CV monitoring -Complete echocardiogram in the a.m. with bubble study -MRI stroke protocol in the a.m. -Swallow evaluation pending -PT/OT eval requested -hgbA1c pending, lipid panel pending -start statin when taking PO Mitral valve regurgitation, POA -Last Echo in 2014 showed mitral valve prolapse with severe mitral regurg. LVEF of 55% -Currently on Losartan for it. Will hold Losartan for 24 hours due to permissive htn. History of migraines, POA -Patient was recently [place] [facility] [place] pain and was placed on a Steroid Taper on 12/13 per pharmacy. -Currently taking Prednisone 40mg PO x 5days. -Will plan to hold prednisone while we request records from [facility] to see if officially diagnosed with temporal arteritis. Leukocytosis, POA -Mild Leukocytosis on admission -Likely due to stress reaction, but will continue to monitor for s/s infection Elevated Glucose, POA -Glucose 104 on admit. -Will check A1c and Lipid Panel in AM. History of learning disability, POA -Pt conversive and independent at baseline GERD, POA -IV Pantoprazole daily while NPO Depression, POA -Resume home ssri when appropriate History of Asthma, POA -Stable without exacerbation. -Continue patient's home inhalers Tylenol when necessary for fever/pain Zofran when necessary for nausea CODE STATUS full resuscitation Disposition: Patient is admitted under Inpatient status, expected LOS >2 midnights, due to risk of adverse events, medical complexity, and decompensation Pain Evaluation: Adequate Pain Control VTE Prophylaxis: Sub-Q Heparin (Unfractionated), SCDs Resuscitation Status: CPR: Attempt Resuscitation Attending Statement The patient was seen and examined together with house staff on 12/17/2016 and I agree with the history, exam and plan as outlined in the note above. Freddie Trejo DO December 17, 2016 20:35 Emilia Hammer DO December 18, 2016 02:36
[2016-12-17] MEDS ORDERED: hydrOXYzine Pamoate 25 mg Capsule PO PRN (20:40)
[2016-12-18] VITALS (8 sets, daily range): BP systolic 90–113; BP diastolic 59–72; PULSE 71–107; RESP 18–24; O2SAT 91–99
[2016-12-18] MEDS: 0.9% Sodium Chloride 1,000 ML IV SCH ×2 (00:15→12:45)
[2016-12-18] MEDS ORDERED: Heparin 5,000 Unit/mL Inj SUBQ SCH ×2 (00:30→08:30)
[2016-12-18 03:19] LABS: BASOPHILS % (AUTO) 0.1 % (0-3); EOSINOPHILS % (AUTO) 0.2 % (0-5); MONOCYTES % (AUTO) 7.7 % (4-12); Mean Corpuscular Hemoglobin 26.2 pg (27.0-35.0); Mean Corpuscular Volume 84.4 fL (81-100); NEUTROPHILS % (AUTO) 83.4 % (40-74); Platelet Count 260 bil/L (150-400)
[2016-12-18] MEDS ORDERED: Potassium Chloride Inj 20 MEQ in Dextrose 5% 250 ML IV ONE (04:30)
[2016-12-18] MEDS ORDERED: Pantoprazole 40 mg ER24 Tablet PO SCH (06:30)
[2016-12-18] MEDS ORDERED: Albuterol 2.5 mg/3 mL Inhalation Solution NEB PRN (07:00)
[2016-12-18] MEDS ORDERED: Pantoprazole 4 mg/mL 10 mL Inj IVPUSH SCH (07:30)
--- NOTE | 2016-12-18 08:27 | DRSVH ---
PROCEDURE: MRI STROKE PROTOCOL ([id number]) Pre- and post-contrast brain MRI, non-contrast brain MR angiogram, pre- and postcontrast neck MR sunny ogram INDICATIONS: Left sided weakness TECHNIQUE: Brain: Noncontrast axial T1 spin echo, axial T2 fast spin echo, sagittal and axial FLAIR, coronal T2 fast spin echo, axial gradient echo, axial diffusion and ADC through the brain. After the administr ation of contrast, axial 3D VIBE of the cranial vasculature and brain. Brain MRA: Non-contrast 3-D time of flight MR angiogram, with multiple fdnvncp-hcjurrung-chwpixvbcm (MIP) reformats performed. Neck MRA: Axial and sagittal TruFISP through the neck. Coronal dynamic MR angiogram during administ ration of contrast in the arterial and venous phases, with 3-dimenstional ehrkiog-hgdzyssij-rfmpnejra n (MIP) reformats constructed from subtraction images. COMPARISON: None. FINDINGS: Image quality: Excellent. BRAIN: CSF spaces: Ventricles are normal in size and shape. Basal cisterns are patent. No extra-axial flu id collections. Brain: Restricted diffusion in the right basal ganglia and surrounding deep white matter consistent w ith acute/subacute infarction. No increased T1 signal to suggest hemorrhagic transformation. There is associated increased T2 signal and mild edema. Findings efface the right lateral ventricle. No midli ne shift. Further acute infarction in the posterior left para midline frontal lobe amounts ( se 2 im 70). Possible punctate acute infarction in the left caudate head. Skull and face: Calvarial marrow signal is normal. Orbits appear normal. Sinuses: Sinuses and mastoids are clear. BRAIN MR ANGIOGRAM: Anterior circulation: Intracranial internal carotid arteries are normal in size and enhancement. Th e flow within the paired anterior cerebral arteries is normal and symmetric. There is loss of flow in the right middle cerebral artery at the M1 level.. The left middle cerebral artery is patent. The a nterior communicating artery is seen. No stenoses, occlusions, or aneurysms. Posterior circulation: The visualized portions of the vertebral arteries demonstrate normal caliber, and join to form a normal appearing basilar artery. The flow within the posterior cerebral arteries is normal and symmetric. No stenoses, occlusions, or aneurysms. A right-sided posterior communicat ing artery is identified. No left-sided posterior indicating artery is identified. NECK MR ANGIOGRAM: Carotids: Great vessels demonstrate a conventional anatomy as they arise from the aortic arch. The origins of the common carotid arteries appear patent. The calibers and courses of both common caroti d arteries are normal. The bifurcation regions appear normal bilaterally. The internal carotid francesca flaco demonstrate normal course and caliber. Posterior circulation: The origins of the vertebral arteries appear patent. More superior portions of both vertebral arteries demonstrate normal course and caliber, and join to form a normal appearing basilar artery. Miscellaneous: Subclavian arteries appear patent. Pre-contrast images through the neck show no soft tissue abnormalities. IMPRESSION: BRAIN MRI: Acute/subacute infarction involving the right basal ganglia and surrounding deep white mat ter with no hemorrhagic transformation or midline shift. Edema effaces the right lateral ventricle. F indings are caused by acute occlusion of the M1 segment of the right middle cerebral artery. Small area of acute infarction in the posterior left paracentral frontal lobe. Possible punctate acut e infarction in the left caudate head. BRAIN MR ANGIOGRAM: Acute occlusion of the right middle cerebral artery at the M1 level. NECK MR ANGIOGRAM: Normal. There are no discrepancies with the pulmonary report. The estimate of stenosis included in the report of the imaging study was calculated using the NASCET method Dictated by: Paul Wise M.D. on 12/18/2016 at 8:10 Approved by: Paul Wise M.D. on 12/18/2016 at 8:26
[2016-12-18] MEDS ORDERED: Tolterodine ER 4 mg ER24 Capsule PO SCH (08:30)
--- NOTE | 2016-12-18 11:23 | DRSVH ---
[facility] [address] [place] [address] Echocardiogram Report Name: EMMIE MARAVILLA KStudy Date: 12/18/2016 Height: 65 in Hospital Exam Location: [facility] Weight: 147 lb Gender: Female BSA: 1.7 m2 : 1965 Age: 51 yrs BP: 109/66 mmHg Reason For Study: CVA History: Mitral valve prolapse Ordering Physician: Performed By: Janet Cintron Interpretation Summary The patient is on [facility] Care Team. Left ventricular wall thickness is mildly increased. The ejection fraction is estimated to be 55-60%. The left atrium is severely dilated. Injection of contrast documented no interatrial shunt. Mobile mass consistent with a torn or redundant chordae vs vegetation noted on the posterior mitral valve leaflet. This is a new finding. Consider HILARY. The mitral regurgitant jet is eccentrically directed. There is moderate mitral regurgitation. Color doppler may be underestimating the severity of MR. Flow reversal noted in pulmonary veins consistent with significant mitral regurgitation. Procedure: A two-dimensional transthoracic echocardiogram with color flow and Doppler was performed. Comparison is made with the echocardiogram of 09/27/2014. The study quality was technically good. The patient was in normal sinus rhythm during the exam. The patient had occasional PVCs during the exam. Left Ventricle: Left ventricular wall thickness is mildly increased. The left ventricle is normal in size. The ejection fraction is estimated to be 55 -60%. There are no focal wall motion abnormalities. Spectral Doppler of the mitral valve shows a normal E/A wave ratio. Right Ventricle: The right ventricle is normal in size and function. Atria: The left atrium is severely dilated. The left atrial volume has not changed since prior echo. Right atrial size is normal. Injection of contrast documented no interatrial shunt. Leftward interatrial septal shift was not achieved due to patient not being able to Valsalva. Mitral Valve: The mitral valve leaflets appear mildly thickened, but open well. The mitral valve leaflets are slightly calcified. There is prolapse of the posterior mitral valve leaflet(s). Mobile mass consistent with a torn or redundant chordae vs vegetation noted on the posterior mitral valve leaflet. This is a new finding. Consider HILARY. Flow reversal noted in pulmonary veins consistent with significant mitral regurgitation. The mitral regurgitant jet is eccentrically directed. There is moderate mitral regurgitation. Aortic Valve: The aortic valve is normal in structure and function. No aortic regurgitation is present. Tricuspid Valve: The tricuspid valve is normal in structure and function. There is a trace or physiologic amount of tricuspid regurgitation. Right ventricular systolic pressure is estimated to be least 25 mmHg plus the clinically estimated CVP which cannot be estimated on this exam. Pulmonic Valve: The pulmonic valve is not well seen, but is grossly normal. There is no pulmonic valvular regurgitation. Great Vessels: The aortic root is normal size. The ascending aorta is mildly enlarged. The aortic arch is normal in size. The IVC is normal in size. The patient could not perform an adequate sniff to assess venous pressure. Pericardium/ Pleura There is a small pericardial effusion noted. There are no echocardiographic or Doppler indications for cardiac tamponade. There is no pleural effusion. MMode/2D Measurements & Calculations LVIDd: 4.9 cm RA long axis LVOT diam: 2.4 cm LVIDs: 3.5 cm LA A2 area: 29.5 cm AoV Opening FS: 28.8 % LA A4 area: 23.2 cm RA area EPSS: 0.43 cm LA length (vol) Ao root diam IVSd: 1.3 cm : 9.4 cm LVPWd: 1.2 cm LA vol: 116.9 ml RA vol Aortic Jxn: 2.9 cm LA vol index : 18.9 ml asc Aorta Diam RA : 10.9 mm2 Ao Arch Diam (Prox IVC diam: 0.79 cm Trans): 3.0 cm LV gallo. diameter/BSA LV sys. diameter/BSA RVD2 (mid) TAPSE: 2.6 cm (cm/m^2): 2.8 (cm/m^2): 2.0 : 4.0 cm Doppler Measurements & Calculations Ao V2 max MV E max jordan MV E/A: 1.1 TR max jordan : 128.1 cm/sec : 101.9 cm/sec Med Peak E' Jordan : 249.1 cm/sec Ao max PG MV A max jordan TR max PG : 6.6 mmHg : 96.3 cm/sec E/E' med: 12.6 : 24.8 mmHg Ao mean PG MV P1/2t: 61.8 msec Lat Peak E' Jordan PA V2 max : 77.5 cm/sec LVOT Max Jordan E/E' lat: 9.1 PA mean PG : 76.5 cm/sec E/e' average PA Accel Time MANI(I,D): 2.9 cm : 0.14 sec sev ratio MV dec time MV P1/2t max jordan Ao V2 mean LV V1 max PG : 0.21 sec : 91.3 cm/sec MVA(P1/2t): 3.6 cm2 Ao V2 VTI: 23.1 cm LV V1 VTI MANI(V,D): 2.6 cm2 : 15.6 cm PA V2 mean MANI indexed to BSA : 46.2 cm/sec (cm^2/m^2): 1.7 Electronically signed by: Dwight Ortiz on Reading Physician:12/18/2016 11:23 AM
[2016-12-18] MEDS ORDERED: LORA1TAB PO (11:35)
[2016-12-18] MEDS ORDERED: ALBU18HF INH (13:10)
[2016-12-18] MEDS ORDERED: AZEL137S11 NS (13:10)
[2016-12-18] MEDS ORDERED: FLUT12AE8 IH (13:10)
--- NOTE | 2016-12-18 14:47 | PCM.PNMED ---
Subjective Date of Service December 18, 2016 Subjective Sarah Lozada is a 51-year-old female with history of learning disability, MVR, migraines, and sleep apnea who presented to the ED for complaints of acute onset of left-sided weakness and slurred speech. Now under treatment for right basal ganglia stroke. Hospital day #2. Overnight: No acute events reported. Today: The is somnolent and not responsive to voice. The patient's daughter and sister were present and noted that the patient was making more sense this morning. This afternoon she is much more awake and alert and responsive but was able to stand with physical therapy. She had ongoing left sided neglect. Review of systems could not be performed. Exam Vital Signs Vital Sign - Last Date Time Temp Pulse Resp B/P Pulse Ox O2 Delivery O2 Flow Rate FiO2 12/18/16 11:59 36.6 85 18 97/63 97 Nasal Cannula 1.50 Intake and Output 12/17/16 12/17/16 12/18/16 Cumulative From/Thru 14:59 22:59 06:59 12/17/16 17:56 - 12/18/16 06:54 Intake Total 0 ml 0 ml Output Total 800 ml 800 ml Balance -800 ml -800 ml Intake Oral 0 ml 0 ml Output Urine Total 800 ml 800 ml Exam General: Well-developed female, in no acute distress. Somnolent. Not responding to verbal stimulus. HEENT: NC/AT. Eyes closed. Neck: trachea midline CV: Regular rate and rhythm 3/6 diastolic murmur at left midclavicular line. Peripheral pulses intact and equal Respiratory: CTA B, no wheezing or rhonchi, normal respiratory effort Abdomen: Soft, nontender, nondistended, NABS MSK: No swollen or tender joints, no peripheral edema or calf tenderness noted Neuro: Left facial droop noted. Patient not very cooperative with a neurological exam. Left-sided weakness is evident in the left lower extremities and left upper extremity. : No Meraz in place Skin: Warm, dry, intact Psych: Somnolent. IVs and Medications Medications Reviewed: Medications were reviewed in detail Lab and Diagnostics Result Diagram: 12/18/1624412/18/16244 X-Rays, CTs and MRIs CT BRAIN (TPA) IMPRESSION: Acute nonhemorrhagic stroke involves the right basal ganglia, with concomitant findings suspicious for proximal right middle cerebral artery thrombus. Findings discussed with Dr. Kiran Caruso on 1755 hours on December 17, 2016. This study fulfills neurological imaging criteria for inclusion or exclusion of acute stroke therapies based on available published neurological imaging guidelines. Dictated by: Stanley Dixon M.D. on 12/17/2016 at 17:50 MRI STROKE PROTOCOL Pre- and post-contrast brain MRI, non-contrast brain MR angiogram, pre- and postcontrast neck MR angiogram IMPRESSION: BRAIN MRI: Acute/subacute infarction involving the right basal ganglia and surrounding deep white matter with no hemorrhagic transformation or midline shift. Edema effaces the right lateral ventricle. Findings are caused by acute occlusion of the M1 segment of the right middle cerebral artery. Small area of acute infarction in the posterior left paracentral frontal lobe. Possible punctate acute infarction in the left caudate head. BRAIN MR ANGIOGRAM: Acute occlusion of the right middle cerebral artery at the M1 level. NECK MR ANGIOGRAM: Normal. There are no discrepancies with the pulmonary report. The estimate of stenosis included in the report of the imaging study was calculated using the NASCET method Dictated by: Paul Wise M.D. on 12/18/2016 at 8:10 12-lead ECG Sinus tachycardia with heart rate of 106, multiple PVCs, unspecific IVCD Cardiac Echo Impressions Interpretation Summary The patient is on [facility] Care Team. Left ventricular wall thickness is mildly increased. The ejection fraction is estimated to be 55-60%. The left atrium is severely dilated. Injection of contrast documented no interatrial shunt. Mobile mass consistent with a torn or redundant chordae vs vegetation noted on the posterior mitral valve leaflet. This is a new finding. Consider HILARY.The mitral regurgitant jet is eccentrically directed. There is moderate mitral regurgitation. Color doppler may be underestimating the severity of MR. Flow reversal noted in pulmonary veins consistent with significant mitral regurgitation. Assessment & Plan Sarah Lozada is a 51-year-old female with history of learning disability, MVR, migraines, and sleep apnea who presented to the ED for complaints of acute onset of left-sided weakness and slurred speech. Now under treatment for right basal ganglia stroke. Hospital day #2. Right basal ganglia nonhemorrhagic stroke with right MCA occlusion at M1, present on admission, ongoing -Etiology likely related to severe MR. -[facility] has been consulted, and recommended MRI then contacting them again -Frequent neuro checks -Allow for permissive hypertension. IV labetalol and IV hydralazine PRN BP >220 /110 -Placed on telemetry for CV monitoring -ECHO reveals either a redundant chordae or a vegetation. Vegetation seems unlikely. -Likely the patient has suffered her stroke due to the degraded mitral valve and may require open heart surgery. I have contacted Dr. Fransisco Bean, interventional cardiology structural heart service at [facility] in [place], [place]. He has agreed to accept the patient in transfer but would like the patient transferred to the hospitalist service and he will consult. I contacted Dr. Leonid Cheung who was on-call for the hospitalist service. And he has accepted the patient in transfer. Patient will need interventional cardiology and neurology consultation which is not available at our hospital this time. Patient will also need possible cardio thoracic surgery consultation. -Swallow evaluation -PT/OT eval requested -HgbA1C pending, lipid panel showing LDL >70. If patient is deemed stable to swallow pills, will start statin with goal LDL <70 for secondary stroke prevention. Mitral valve regurgitation, present on admission -Last Echo in 2014 showed mitral valve prolapse with severe mitral regurg. LVEF of 55% -Will hold Losartan for 24 hours due to permissive hypertension History of migraines, present on admission -Patient was recently admitted at [facility] for left temporal pain and was placed on a Steroid Taper on 12/13 per pharmacy. -Currently taking Prednisone 40mg PO x 5days. -Will plan to hold prednisone while we request records from [facility] to see if officially diagnosed with temporal arteritis. Leukocytosis, present on admission -Mild Leukocytosis on admission -Likely due to stress reaction, but will continue to monitor for s/s infection History of learning disability, present on admission -Pt conversive and independent at baseline GERD, present on admission -IV Pantoprazole daily while NPO Depression, present on admission -Resume home SSRI when appropriate History of Asthma, present on admission -Stable without exacerbation. -Continue patient's home inhalers Tylenol when necessary for fever/pain Zofran when necessary for nausea CODE STATUS full resuscitation Disposition: Patient is being transferred to [facility] under the care of Dr. Fransisco Bean and Dr. Leonid Cheung today. Pain Evaluation: Adequate Pain Control VTE Prophylaxis: Sub-Q Heparin (Unfractionated), SCDs VTE Mechanical Devices: Intermittant Pneumatic CD Resuscitation Status: CPR: Attempt Resuscitation Attending Statement She was seen and examined with Dr. Mosqueda. Chart reviewed and agree with the above progress note. Enriqueta Mosqueda DO December 18, 2016 13:54 Saman Madrigal MD December 18, 2016 16:03
--- NOTE | 2016-12-18 22:11 | PCM.DC.MED ---
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 Findings discussed with Dr. Kiran Caruso on 1755 hours on December 17, 2016. This study fulfills neurological imaging criteria for inclusion or exclusion of acute stroke therapies based on available published neurological imaging guidelines. Dictated by: Stanley Dixon M.D. on 12/17/2016 at 17:50 MRI STROKE PROTOCOL Pre- and post-contrast brain MRI, non-contrast brain MR angiogram, pre- and postcontrast neck MR angiogram IMPRESSION: BRAIN MRI: Acute/subacute infarction involving the right basal ganglia and surrounding deep white matter with no hemorrhagic transformation or midline shift. Edema effaces the right lateral ventricle. Findings are caused by acute occlusion of the M1 segment of the right middle cerebral artery. Small area of acute infarction in the posterior left paracentral frontal lobe. Possible punctate acute infarction in the left caudate head. BRAIN MR ANGIOGRAM: Acute occlusion of the right middle cerebral artery at the M1 level. NECK MR ANGIOGRAM: Normal. There are no discrepancies with the pulmonary report. The estimate of stenosis included in the report of the imaging study was calculated using the NASCET method Dictated by: Paul Wise M.D. on 12/18/2016 at 8:10 ECG 12 Lead Sinus tachycardia with heart rate of 106, multiple PVCs, unspecific IVCD Cardiac Echo Impression Interpretation Summary The patient is on [facility]. Left ventricular wall thickness is mildly increased. The ejection fraction is estimated to be 55-60%. The left atrium is severely dilated. Injection of contrast documented no interatrial shunt. Mobile mass consistent with a torn or redundant chordae vs vegetation noted on the posterior mitral valve leaflet. This is a new finding. Consider HILARY.The mitral regurgitant jet is eccentrically directed. There is moderate mitral regurgitation. Color doppler may be underestimating the severity of MR. Flow reversal noted in pulmonary veins consistent with significant mitral regurgitation. Brief History 51-year-old female with history of learning disability, MVR, migraines, and sleep apnea who presented to the ED for complaints of acute onset of left-sided weakness and slurred speech. Per family, patient was noted to have these symptoms around lunchtime today, although they are unsure if it was present before. They state the patient was at baseline prior to going to sleep last night. She is able to converse fluently and walk independently at baseline, but around lunchtime, they noted that she was unable to articulate her words well and had to be carried to the bathroom. She was noted to be have urinary incontinence also. Family denies any recent illnesses, fevers, cough, congestion , abd pain, n/v, diarrhea, or increased complaint of pain. Patient did have surgery in Sep on her right foot and family reports patient has been fairly immobile since. She generally lays in bed everyday except for a rare trip to [facility]. In the ED, patient was mildly tachycardic at 104, with a respiratory rate of 26 , and a blood pressure of 128/73 Her CBC remarkable for a white count of 13.6 with hemoglobin 11.7 CMP remarkable for a potassium of 3.3 and a total bilirubin of 1.6 Her NIH SS score was 12 per ED physician. Initial brain CT unremarkable for acute nonhemorrhagic stroke of the right basal ganglia with a proximal right MCA thrombus. TPA was not pushed due to uncertain timeframe. [place] neurosurgery was consulted and recommended observation overnight with MRI in the morning and reconsultation. Reviewing patient's medications, she is currently on the prednisone taper. Further investigation by pharmacy team reports that patient was the [facility] on December 13 for left-sided temporal pain. They were suspicious of temporal arteritis and she was placed on a prednisone taper, which she is at 40 mg currently. Patient was admitted to the hospital service for further evaluation treatment. Hospital Course Sarah Lozada is a 51-year-old female with history of learning disability, MVR, migraines, and sleep apnea who presented to the ED for complaints of acute onset of left-sided weakness and slurred speech. Now under treatment for right basal ganglia stroke. Hospital day #2. Right basal ganglia nonhemorrhagic stroke with right MCA occlusion at M1, present on admission, ongoing -Etiology likely related to severe MR. -[place] neurology has been consulted, and recommended MRI then contacting them again -Frequent neuro checks -Allow for permissive hypertension. IV labetalol and IV hydralazine PRN BP >220 /110 -Placed on telemetry for CV monitoring -ECHO reveals either a redundant chordae or a vegetation. Vegetation seems unlikely. -Likely the patient has suffered her stroke due to the degraded mitral valve and may require open heart surgery. I have contacted Dr. Fransisco Bean, interventional cardiology structural heart service at [facility] in [place], [place]. He has agreed to accept the patient in transfer but would like the patient transferred to the hospitalist service and he will consult. I contacted Dr. Leonid Cheung who was on-call for the hospitalist service. And he has accepted the patient in transfer. Patient will need interventional cardiology and neurology consultation which is not available at our hospital this time. Patient will also need possible cardio thoracic surgery consultation. -Swallow evaluation -PT/OT eval requested -HgbA1C pending, lipid panel showing LDL >70. If patient is deemed stable to swallow pills, will start statin with goal LDL <70 for secondary stroke prevention. Mitral valve regurgitation, present on admission -Last Echo in 2014 showed mitral valve prolapse with severe mitral regurg. LVEF of 55% -Will hold Losartan for 24 hours due to permissive hypertension History of migraines, present on admission -[place] was [place] [facility] [place] and was placed on a Steroid Taper on 12/13 per pharmacy. -Currently taking Prednisone 40mg PO x 5days. -Will plan to hold prednisone while we request records [place] [facility] to see if officially diagnosed with temporal arteritis. Leukocytosis, present on admission -Mild Leukocytosis on admission -Likely due to stress reaction, but will continue to monitor for s/s infection History of learning disability, present on admission -Pt conversive and independent at baseline -Patient is normally very active. However, over the last year or so the family thought she was just being "lazy". Now in retrospect they think maybe it was due to her poor heart valve condition. GERD, present on admission -IV Pantoprazole daily while NPO Depression, present on admission -Resume home SSRI when appropriate History of Asthma, present on admission -Stable without exacerbation. -Continue patient's home inhalers Tylenol when necessary for fever/pain Zofran when necessary for nausea CODE STATUS full resuscitation Disposition: Patient is being transferred to [facility] under the care of Dr. Fransisco Bean and Dr. Leonid Cheung today. Exam Vital Signs (Last) Date Time Temp Pulse Resp B/P Pulse Ox O2 Delivery O2 Flow Rate FiO2 12/18/16 20:45 37.4 94 18 113/72 98 Nasal Cannula 1.00 Exam General: Well-developed female, in no acute distress. Somnolent. Not responding to verbal stimulus. HEENT: NC/AT. Eyes closed. Neck: trachea midline CV: Regular rate and rhythm 3/6 diastolic murmur at left midclavicular line. Peripheral pulses intact and equal Respiratory: CTA B, no wheezing or rhonchi, normal respiratory effort Abdomen: Soft, nontender, nondistended, NABS MSK: No swollen or tender joints, no peripheral edema or calf tenderness noted Neuro: Left facial droop noted. Patient not very cooperative with a neurological exam. Left-sided weakness is evident in the left lower extremities and left upper extremity. : No Meraz in place Skin: Warm, dry, intact Psych: Somnolent. Test 12/17/16 18:00 12/17/16 19:38 12/18/16 02:45 12/18/16 03:00 Prothrombin Time 10.5sec (8.1-12.5) Prothromb Time International Ratio 0.98ratio Activated Partial Thromboplast Time 24.9sec (22.8-33.0) Total Bilirubin 1.6mg/dL (0.0-1.2) Aspartate Amino Transf (AST/SGOT) 21U/L (0-50) Alanine Aminotransferase (ALT/SGPT) 5U/L (0-32) Alkaline Phosphatase 119U/L (25-150) Troponin T < 0.010ug/L (0.0-0.011) Total Protein 7.5g/dL (6.4-8.4) Albumin 3.1g/dL (3.4-5.0) Urine Color Dark yellow (YELLOW) Urine Appearance Cloudy (CLEAR,HAZY) Urine pH 5.0 (5.0-8.0) Urine Specific [place] 1.024 (1.003-1.035) Urine Protein 100mg/dL (NEG,TRACE) Urine Glucose (UA) Negativemg/dL (NEGATIVE) Urine Ketones Tracemg/dL (NEGATIVE) Urine Occult Blood Large (NEGATIVE) Urine Nitrite Negative (NEGATIVE) Urine Bilirubin Moderate (NEGATIVE) Urine Ictotest Positive (Negative) Urine Urobilinogen Normalmg/dL (NORMAL) Urine Leukocyte Esterase Negative (NEGATIVE) Urine RBC 3-10/hpf (0-2) Urine WBC 11-50/hpf (0-5) Urine Epithelial Cells Few/hpf (NONE-MOD) Urine Crystals Amorphous urates (NONE Urine Bacteria None/hpf (NONE-FEW) Urine Hyaline Casts None/lpf (NONE) Urine Granular Casts None seen (NONE SEEN) Urine Waxy Casts None seen (NONE SEEN) Urine Red Blood Cell Casts None seen (NONE SEEN) Urine White Blood Cell Casts None seen (NONE SEEN) Urine Mucus Present (None Seen) Urine Trichomonas None seen (NONE SEEN) Urine Yeast None (NONE SEEN) Urine Culture Reflexed Indicated White Blood Count 11.1th/mm3 (3.8-10.1) Red Blood Count 3.59mil/mm3 (3.90-5.20) Hemoglobin 9.4g/dL (12.0-15.6) Hematocrit 30.3% (35.0-46.0) Mean Corpuscular Volume 84.4fL (81-100) Mean Corpuscular Hemoglobin 26.2pg (27.0-35.0) Mean Corpuscular Hemoglobin Concent 31.0% (32.0-37.0) Red Cell Distribution Width 17.7% (12.3-15.4) Platelet Count 260bil/L (150-400) Neutrophils (%) (Auto) 83.4% (40-74) Lymphocytes (%) (Auto) 8.2% (14-46) Monocytes (%) (Auto) 7.7% (4-12) Eosinophils (%) (Auto) 0.2% (0-5) Basophils (%) (Auto) 0.1% (0-3) Sodium Level 138mEq/L (134-144) Potassium Level 3.3mEq/L (3.5-5.2) Chloride Level 97mEq/L (97-108) Carbon Dioxide Level 25mmol/L (18-29) Blood Urea Nitrogen 18mg/dL (6-24) Creatinine 0.53mg/dL (0.57-1.00) Estimat Glomerular Filtration Rate 174mL/min (>59) Glucose Level 108mg/dL (60-99) Calcium Level 8.5mg/dL (8.5-10.1) Magnesium Level 2.0mg/dL (1.6-2.6) Prealbumin 9mg/dL (20-40) Triglycerides Level 147mg/dL (0-149) Cholesterol Level 165mg/dL (100-199) LDL Cholesterol, Calculated 104.600mg/dL (0-99) VLDL Cholesterol 29.400mg/dL HDL Cholesterol 31mg/dL (>39) Cholesterol/HDL Ratio 5.32 (0.0-4.4) Thyroid Stimulating Hormone (TSH) 0.563uIU/mL (0.450-4.500) Hemoglobin A1c 5.2% (4.8-5.6) Discharge Medications Discharge Medications Citalopram Hydrobromide (Celexa) 20 Mg Tablet 20 MG PO QAM (Reported) Cyclosporine (Restasis) 1 Each Droperette 1 EACH BOTH_EYES BID (Reported) Fluticasone Propionate (Flovent HFA 110 mcg) 12 Gm Aer.w.adap 1 PUFF IH BID ( Reported) Loratadine (Claritin) 10 Mg Capsule 10 MG PO QAM (Reported) Losartan Potassium (Losartan Potassium) 25 Mg Tablet 25 MG PO QAM (Reported) Pantoprazole DR (Pantoprazole DR) 40 Mg Tablet.dr 40 MG PO QAM (Reported) Tolterodine Tartrate ER (Tolterodine Tartrate ER) 4 Mg Capsule 4 MG PO QAM ( Reported) As needed Albuterol HFA (Proair HFA) 8.5 Gm Hfa.aer.ad 2 PUFFS INHALATION Q4H PRN PRN For Shortness of Breath (Reported) Albuterol Sulfate (Ventolin HFA Inhaler) 200 Puff/18 Gm Inhaler 2 PUFF INH Q4 PRN PRN For Wheezing (Reported) Butalbital/Acetamin/Caff 50-325-40 mg (Esgic 50-325-40 mg) 1 Each Capsule 1-2 CAPSULE PO Q4H PRN PRN migraines (Reported) not to exceed 6cap/24hrs Clonazepam (Clonazepam) 0.5 Mg Tablet 0.5 MG PO HS PRN PRN For Anxiety (Reported ) Hydrocodone-Acetaminophen 10-325 mg (Hydrocodone-Acetaminophen 10-325 mg) 1 Each Tablet 1-2 TABLET PO Q4H PRN PRN For Pain (Reported) Ibuprofen (Ibuprofen) 600 Mg Tablet 600 MG PO QID PRN PRN For Pain (Reported) Lorazepam (Lorazepam) 1 Mg Tablet 1 MG PO DAILY PRN PRN For Anxiety or Agitation (Reported) hydrOXYzine Hcl (HydrOXYzine Hcl) 25 Mg Tablet 25 MG PO TID PRN PRN For Itching (Reported) Followup Plan Disposition: Patient is being transferred to [facility] in [place], [place] this evening. There she will be evaluated by Dr.. Fransisco Bean of the interventional cardiology, structural heart service team. The patient will likely need cardiothoracic surgery and possible mitral valve replacement. She also will require neurology consultation for right middle cerebral artery thrombus and right sided CVA. Neurology service is not available here at [facility] at this time. Follow-up Provider: Leonid Carrasco MD Follow-up with PCP in: 2 weeks Time spent Time spent on discharging this patient was greater than 35 minutes, over half of which was involved in counseling and coordination of care. Saman Madrigal MD December 18, 2016 22:11
== END 2016-12-18 23:00 | disposition short-term general hospital (02) | DRG 65 ==
LOC: SED 17:36 → PCC 19:21
PROVIDERS: ADMIT Internal Medicine; ATTEND Internal Medicine
DX: I63.311 Cerebral infarction due to thrombosis of right middle cerebral artery (principal); G81.94 Hemiplegia, unspecified affecting left nondominant side; R62.50 Unspecified lack of expected normal physiological development in childhood; R47.81 Slurred speech; R40.2412 Glasgow coma scale score 13-15, at arrival to emergency department; R40.2362 Coma scale, best motor response, obeys commands, at arrival to emergency department; R40.2142 Coma scale, eyes open, spontaneous, at arrival to emergency department; R40.2252 Coma scale, best verbal response, oriented, at arrival to emergency department; R29.712 NIHSS score 12; Z87.891 Personal history of nicotine dependence; Z79.52 Long term (current) use of systemic steroids; G47.33 Obstructive sleep apnea (adult) (pediatric); I34.0 Nonrheumatic mitral (valve) insufficiency; K21.9 Gastro-esophageal reflux disease without esophagitis